=== PATIENT | male | born 1965 | race Caucasian/White ===

== ENCOUNTER → 2021-09-24 | Day surgery (SDC) | payer OTHER ==
[~2021-09-24] VITALS: Ht 182.9 cm; Wt 81.8 kg
[~2021-09-24] MED LIST: ATORVASTATIN CA40 MG PO; LIPITOR40 MG PO; NORCO 5-325 TA1 EACH PO; OMEPRAZOLE40 MG PO; PRILOSEC20 MG PO
[2021-09-24 07:36] LABS: HCT 46.2 % (42.0-52.0); HGB 15.7 g/dl (13.2-18.0); MCH 30.9 pg (25.0-31.0); MCV 90.9 fL (78.0-100.0); MPV 10.1 fL (6.0-9.5); RBC 5.08 M/uL (4.70-6.00); RDW 12.7 % (11.5-14.0)
[2021-09-24 07:56] LABS: ALBUMIN 3.5 g/dL (3.4-5.0); BILIRUBIN - TOTAL 0.4 mg/dL (0.2-1.0); BUN/CREAT RATIO (CALC) 11.6 RATIO; CREATININE 0.86 mg/dL (0.67-1.17); GLOBULIN (CALCULATION) 3.4 g/dL; POTASSIUM 4.1 mmol/L (3.5-5.1); TOTAL PROTEIN 6.9 g/dL (6.4-8.2)
== END | disposition home or self-care (01) ==
LOC: FAS 08-20 10:15
PROVIDERS: Surgery
DX: Z12.11 Encounter for screening for malignant neoplasm of colon (principal); K29.50 Unspecified chronic gastritis without bleeding; D12.0 Benign neoplasm of cecum; K21.9 Gastro-esophageal reflux disease without esophagitis; Z88.0 Allergy status to penicillin; Z86.010 Personal history of colon polyps
CPT/HCPCS: 36415; 80053; J2250; J2704; J7120